=== PATIENT | male | born 1985 ===

== ENCOUNTER 2025-02-09 20:34 | Emergency (ER) | payer OTHER ==
[~2025-02-09] VITALS: Ht 177.8 cm; Wt 68.5 kg
[2025-02-09] MEDS ORDERED: LACTATED RINGER'S 1,000 ML IV ONE (21:00)
[2025-02-09 21:04] LABS: BASOPHILS 1.4 % (0.2-1.2); EOSINOPHILS 1.8 % (0.8-7.0); LYMPHOCYTES 23.9 % (21.8-53.1); MCH 30.9 PG (25.7-32.2); MCHC 35.1 g/dL (32.3-36.5); MCV 88.0 fL (79.0-92.2); MONOCYTES 19.0 % (5.3-12.2); NEUTROPHILS 53.6 % (34.0-67.9); RBC 5.57 M/uL (4.63-6.08)
[2025-02-09 21:24] LABS: ALCOHOL, MEDICAL <3 ng/dL (<3); ALT (SGPT) 35 U/L (14-59); AST (SGOT) 26 U/L (15-37); GLOMERULAR FILTRATION RATE,EST 85 mL/min (>60); PROTEIN, TOTAL 8.1 g/dL (6.4-8.2); UREA NITROGEN 30 mg/dL (7-18)
[2025-02-09 22:13] LABS: BLOOD/HGB, URINE NEGATIVE (Negative); KETONE, URINE TRACE (Negative); LEUK ESTERASE, URINE NEGATIVE (negative); NITRITE, URINE NEGATIVE (negative)
[2025-02-09 22:17] LABS: EPITHELIAL CELLS, URINE SQUAMOUS 1+ /lpf (0-1+)
[2025-02-09 22:18] LABS: BACTERIA, URINE RARE /hpf (negative); CRYSTALS, URINE NONE SEEN (0-1+)
[2025-02-09 22:19] LABS: CASTS, URINE HYALINE 1+ \\lpf; REFLEX CULTURE, URINE No (No)
[2025-02-09 22:28] LABS: AMPHETAMINES, URINE POSITIVE (NEGATIVE); BARBITURATES, URINE NEGATIVE (NEGATIVE); BENZODIAZEPINE, URINE NEGATIVE (NEGATIVE); CANNABINOID, URINE POSITIVE (NEGATIVE); COCAINE, URINE NEGATIVE (NEGATIVE); ECSTASY, URINE POSITIVE (NEGATIVE); FENTANYL, URINE NEGATIVE (NEGATIVE); METHADONE, URINE NEGATIVE (NEGATIVE); OPIATES, URINE NEGATIVE (NEGATIVE); OXYCODONE, URINE NEGATIVE (NEGATIVE); PHENCYCLIDINE, URINE NEGATIVE (NEGATIVE)
[2025-02-10 00:36] VITALS: BP 139/109
--- NOTE | 2025-02-10 19:51 | EKG ---
[facility] [address] [place], [place] [address] Signed Sinus tachycardia Early repolarization Otherwise normal ECG No previous ECGs available Confirmed by Carol Lazo DO ([id number]) on 02/10/2025 7:51:31 PM Electronically Signed By: CAROL LAZO DO 02/10/251950 PATIENT NAME: CÉSAR SCHAFFER Electrocardiogram DATE OF : 83 PHYSICIAN: CAROL LAZO DO REPORT #: [id number] REPORT IS CONFIDENTIAL AND NOT TO BE RELEASED WITHOUT AUTHORIZATION
== END 2025-02-10 00:41 | disposition home or self-care (01) ==
LOC: ED 20:34
PROVIDERS: Internal Medicine
DX: S82.62XA Displaced fracture of lateral malleolus of left fibula, initial encounter for closed fracture (principal); W19.XXXA Unspecified fall, initial encounter; F15.129 Other stimulant abuse with intoxication, unspecified
CPT/HCPCS: 36415; 73610; 80053; 80307; 81001; 83735; 84484; 85025; 93005; 93010; 99284; G0480; J7121